=== PATIENT | female | born 1985 | race Caucasian/White ===

== ENCOUNTER 2020-02-24 19:11 | Inpatient (IN) | payer OTHER, MEDICAID ==
[~2020-02-24] VITALS: Ht 149.9 cm; Wt 65.9 kg
--- NOTE | ~2020-02-24 | OP ---
[address] [address] OPERATIVE REPORT Name: SHARMAINE ACEVEDO Room: [address] .R.#: [id number] Admission: 02/24/20 Attend Phys: Chan Goode MD Discharge: Date of : 87 Report #: [id number] THIS REPORT FOR: //name// cc: Physician not on staff Physician not on staff ~ THIS REPORT FOR: //name// CC: ABUNDIO BREWERHEL Physician staff Chan Goode DATE OF SERVICE: 02/25/2020 PREOPERATIVE DIAGNOSIS: Acute cholecystitis. POSTOPERATIVE DIAGNOSIS: Acute cholecystitis. PROCEDURE: Laparoscopic cholecystectomy. SURGEON: Marek Gabriel MD ANESTHESIA: General. ESTIMATED BLOOD LOSS: Minimal. SPECIMEN: Gallbladder. DESCRIPTION OF PROCEDURE: After informed consent was obtained, the patient was brought to the operating room and placed supine. SCDs were placed and working, preoperative antibiotics were administered, general anesthesia was induced. The abdomen was prepped and draped in the usual sterile fashion. A 10 mm incision was made below the umbilicus. Fascia was incised and a trocar was placed. Pneumoperitoneum was established. Three right upper quadrant 5 mm ports were placed. Gallbladder was grasped at the fundus and retracted cephalad. Infundibulum was grasped and retracted laterally. I dissected out the cystic duct and cystic artery as well as the cystic plate. The cystic duct and artery were clipped and ligated leaving 2 clips on the remaining duct and one on the remaining artery. Gallbladder was then taken off the liver bed with electrocautery. It was placed into an Endopouch and removed. The fascia was then closed with a [id number] 0 Vicryl. Skin was closed with 4-0 Monocryl. Incisions were sealed with Dermabond. COMPLICATIONS: [place] [address] OPERATIVE REPORT Name: KRISTINA,SHARMAINE L Room: [address]#: [id number] Admission: 02/24/20 Attend Phys: Chan Goode MD Discharge: Date of : 87 Report #: [id number] DISPOSITION: The patient was taken to recovery in satisfactory condition. By: [id number] Gabriel MD /nt
[2020-02-24 19:24] VITALS: BP 104/63
[2020-02-24 19:52] LABS: URINE BILIRUBIN NEGATIVE (Negative); URINE BLOOD 1+ (Negative); URINE CLARITY CLEAR; URINE COLOR YELLOW; URINE GLUCOSE-RANDOM NEGATIVE (Negative); URINE KETONES NEGATIVE (Negative); URINE LEUKOCYTES-REFLEX NEGATIVE (Negative); URINE NITRITE-REFLEX NEGATIVE (Negative); URINE PROTEIN NEGATIVE (Negative); URINE SPECIFIC GRAVITY <= 1.005 (1.005-1.030); URINE UROBILINOGEN 0.2 E.U./dl (0.2-1.0)
[2020-02-24 20:02] LABS: ABSOLUTE EOSINOPHILS 0.2 thou/uL (0.0-0.7); ABSOLUTE LYMPHOCYTES 2.2 thou/uL (0.8-5.3); ABSOLUTE MONOCYTES 0.6 thou/uL (0.0-1.2); ABSOLUTE NEUTROPHILS 4.1 thou/uL (1.6-8.1); BASOPHILS 0.7 %; EOSINOPHILS 2.8 %; HEMOGLOBIN 14.7 gm/dL (12.0-15.0); LYMPHOCYTES 30.8 %; MCV 91.5 fL (80.0-100.0); MONOCYTES 8.8 %; MPV 10.1 fl. (7.2-11.1); NUCLEATED RBCS 0 /100WBC; PLATELET COUNT* 169 thou/uL (150-400); POLYS 56.9 %; RBC 4.59 mil/uL (4.20-5.00); RDW-CV 12.6 % (10.5-14.5); WBC 7.1 thou/uL (4.0-11.0)
[2020-02-24 20:14] LABS: CALCIUM 8.9 mg/dL (8.5-10.1); CREATININE 0.8 mg/dL (0.6-1.3); POTASSIUM 3.9 mmol/L (3.5-5.1)
[2020-02-24 20:17] LABS: CASTS None Seen /LPF (None Seen); MUCUS None Seen strn/LPF (None Seen); SQUAMOUS 0-3 Few /LPF (0-3)
[2020-02-24 20:18] LABS: ALBUMIN 3.8 g/dL (3.4-5.0); TOTAL BILIRUBIN 0.2 mg/dL (<0.1-1.0)
[2020-02-24 20:18] LABS: BACTERIA-REFLEX None Seen /HPF (None Seen); CRYSTALS None Seen /LPF (None Seen); URINE RBC 0-2 Rare /HPF (0-2); URINE WBC-REFLEX None Seen /HPF (0-5)
[2020-02-24 23:34] VITALS: BP 104/63
[2020-02-25 02:47] VITALS: BP 87/49
[2020-02-25 08:10] VITALS: BP 85/40
--- NOTE | 2020-02-25 08:49 | EKG ---
[place] [address] ELECTROCARDIOGRAM REPORT Name: SHARMAINE ACEVEDO Room: [address] IN ..#: [id number] Admission: 02/24/20 Attend Phys: Chan Goode MD Discharge: Date of : 87 Date of Service: 02/24/202204 Report #: [id number] THIS REPORT FOR: //name// [facility] ED Test Date: 2020-02-24 Test Time: 22:05:30 Pat Name: SHARMAINE ACEVEDO Department: Room: [facility] Gender: F [employer] Operator: ID : [id number] Requested By: Laurie Mujica Order Number: [id number] MD: Theodore Ramírez Measurements Intervals [place] Rate: 64 P: 9 OK: 165 QRS: -7 QRSD: 87 T: 13 QT: 415 QTc: 428 Interpretive Statements Sinus rhythm Low voltage, precordial leads No previous ECG available for comparison Electronically Signed On 02-25-2020 8:49:14 CDT by Theodore Ramírez [email or web address] <ELECTRONICALLY SIGNED> By: Theodore Ramírez MD, [facility] 02/25/20 0849 [id number] Theodore Ramírez MD, [facility] /EPI
[2020-02-25 15:13] VITALS: BP 85/40
[2020-02-25] MEDS ORDERED: LORCET 5-325 M1 EACH PO (15:20)
[2020-02-25 15:46] VITALS: BP 87/70
[2020-02-25 16:41] VITALS: BP 85/40
[2020-02-25 17:10] VITALS: BP 85/40
== END 2020-02-25 17:43 | disposition home or self-care (01) | DRG 419 ==
LOC: M.ERS 19:11 → M.TBA-ER 21:49 → M.ORTHSURG 21:49
PROVIDERS: Nurse Practitioner Family; ADMIT Surgery; ATTEND Surgery
PROC: 0FT44ZZ Resection of Gallbladder, Percutaneous Endoscopic Approach (ICD-10-PCS; principal; 2020-02-25)
DX: K81.0 Acute cholecystitis (principal); K21.9 Gastro-esophageal reflux disease without esophagitis; J45.909 Unspecified asthma, uncomplicated; F17.210 Nicotine dependence, cigarettes, uncomplicated; Z03.818 Encounter for observation for suspected exposure to other biological agents ruled out; Z88.8 Allergy status to other drugs, medicaments and biological substances

== ENCOUNTER 2020-02-26 18:40 | Emergency (ER) | payer OTHER, MEDICAID ==
[~2020-02-26] VITALS: Ht 149.9 cm; Wt 63.5 kg
[~2020-02-26 18:40] MED LIST: LORCET 5-325 M1 EACH PO
[2020-02-26 19:44] LABS: URINE BILIRUBIN NEGATIVE (Negative); URINE BLOOD 2+ (Negative); URINE CLARITY CLEAR; URINE COLOR YELLOW; URINE GLUCOSE-RANDOM NEGATIVE (Negative); URINE KETONES NEGATIVE (Negative); URINE LEUKOCYTES-REFLEX NEGATIVE (Negative); URINE NITRITE-REFLEX NEGATIVE (Negative); URINE PROTEIN NEGATIVE (Negative); URINE SPECIFIC GRAVITY <= 1.005 (1.005-1.030); URINE UROBILINOGEN 0.2 E.U./dl (0.2-1.0)
[2020-02-26 20:03] LABS: ABSOLUTE LYMPHOCYTES 1.9 thou/uL (0.8-5.3); ABSOLUTE MONOCYTES 0.6 thou/uL (0.0-1.2); BASOPHILS 0.3 %; EOSINOPHILS 0.4 %; HEMATOCRIT 40.5 % (37.0-47.0); HEMOGLOBIN 13.9 gm/dL (12.0-15.0); LYMPHOCYTES 19.6 %; MCH 31.3 pg (26.0-34.0); MCHC 34.3 g/dL (28.0-37.0); MCV 91.4 fL (80.0-100.0); MONOCYTES 5.8 %; MPV 10.1 fl. (7.2-11.1); NUCLEATED RBCS 0 /100WBC; PLATELET COUNT* 171 thou/uL (150-400); POLYS 73.9 %; RBC 4.44 mil/uL (4.20-5.00); RDW-CV 12.6 % (10.5-14.5); WBC 9.5 thou/uL (4.0-11.0)
[2020-02-26 20:09] LABS: BACTERIA-REFLEX 1-9 Few /HPF (None Seen); CASTS None Seen /LPF (None Seen); CRYSTALS None Seen /LPF (None Seen); SQUAMOUS 0-3 Few /LPF (0-3); URINE RBC 0-2 Rare /HPF (0-2); URINE WBC-REFLEX 0-5 Rare /HPF (0-5)
[2020-02-26 20:15] LABS: CALCIUM 8.3 mg/dL (8.5-10.1); CREATININE 0.9 mg/dL (0.6-1.3)
[2020-02-26 20:27] LABS: ALBUMIN 3.7 g/dL (3.4-5.0); TOTAL BILIRUBIN 0.3 mg/dL (<0.1-1.0)
[2020-02-26 22:02] VITALS: BP 121/70
== END 2020-02-26 22:03 | disposition home or self-care (01) ==
LOC: M.ERS 18:40
PROVIDERS: Family Medicine
DX: G89.18 Other acute postprocedural pain (principal); J45.909 Unspecified asthma, uncomplicated; K21.9 Gastro-esophageal reflux disease without esophagitis; Z91.048 Other nonmedicinal substance allergy status; Z88.4 Allergy status to anesthetic agent